=== PATIENT | female | born 1990 | race Hispanic/Latino ===

== ENCOUNTER 2020-08-07 03:43 | Inpatient (IN) | payer OTHER ==
[~2020-08-07] VITALS: Ht 167.6 cm; Wt 74.8 kg
[~2020-08-07 03:43] MED LIST: HYDROCODON-ACE1 EAC9; LORAZEPAM2 MG; Z.0.FAMOTIDINE20 MG MT; Z.0.SUCRALFATE1 GM MT
[2020-08-07] MEDS ORDERED: ACETAMINOPHEN 325 MG TAB PO ONE (04:00)
[2020-08-07] MEDS ORDERED: SODIUM CHLORIDE 0.9% 1000ML 1,000 ML IV ONE ×2 (04:00→05:15)
[2020-08-07 04:45] LABS: BASOPHILS % 0.1 % (0.0-1.0); EOSINOPHILS # (AUTO) 0.1 (0.0-0.4); EOSINOPHILS % 1.7 % (0.0-6.0); HEMATOCRIT 36.7 % (34.2-44.1); LYMPHOCYTES % 12.2 % (18.0-39.1); MEAN CORPUSCULAR HEMOGLOBIN 31.3 pg (28-32); MEAN CORPUSCULAR HGB CONC 32.7 g/dL (31-35); MEAN CORPUSCULAR VOLUME 95.8 fL (81-99); MONOCYTES # (AUTO) 0.2 (0.2-0.8); MONOCYTES % 2.7 % (4.4-11.3); NEUTROPHILS # (AUTO) 6.8 (2.1-6.9); NEUTROPHILS % 83.1 % (38.7-80.0); PLATELET COUNT 151 x10e3/uL (140-360); RED BLOOD COUNT 3.83 x10e6/uL (3.6-5.1); RED CELL DISTRIBUTION WIDTH 12.5 % (11.7-14.4)
[2020-08-07 04:49] LABS: INR 0.9; PROTHROMBIN TIME 12.6 seconds (11.9-14.5)
[2020-08-07 04:50] LABS: PARTIAL THROMBOPLASTIN TIME 24.8 seconds (23.8-35.5)
[2020-08-07 05:03] LABS: ALANINE AMINOTRANSFERASE 48 IU/L (0-55); ALBUMIN 4.2 g/dL (3.5-5.0); ALBUMIN/GLOBULIN RATIO 1.4 (0.8-2.0); ALKALINE PHOSPHATASE 74 IU/L (40-150); ANION GAP 15.5 mmol/L (8-16); BLOOD UREA NITROGEN 16 mg/dL (7-26); BUN/CREATININE RATIO 20 (6-25); CALCIUM 9.2 mg/dL (8.4-10.2); CARBON DIOXIDE 25 mmol/L (22-29); CHLORIDE 105 mmol/L (98-107); CREATINE KINASE 108 IU/L (29-168); EST GLOMERULAR FILTRATION RATE > 60 ML/MIN (60-); GLUCOSE 91 mg/dL (74-118); POTASSIUM 3.5 mmol/L (3.5-5.1); SODIUM 142 mmol/L (136-145)
--- NOTE | 2020-08-07 05:07 | Diagnostic Imaging Report ---
EXAMINATION: CHEST 2 VIEWS INDICATION: CHEST PAIN COMPARISON: None FINDINGS: TUBES and LINES: None. LUNGS: Normal lung volumes. Lungs are clear. No consolidations. PLEURA: No pleural effusion or pneumothorax. HEART AND MEDIASTINUM: The cardiomediastinal silhouette is unremarkable. BONES AND SOFT TISSUES: No acute osseous lesion. Soft tissues are unremarkable. UPPER ABDOMEN: No free air under the diaphragm. IMPRESSION: No acute thoracic radiographic abnormality. Signed by: Abdulkadir Kasper DO on 08/07/2020 5:03 AM
[2020-08-07] MEDS ORDERED: PIPER-TAZ 3.375 GM 50 ML IV ONE (05:15)
--- OUTSIDE RECORDS SUMMARY | 2020-08-07 05:22 | XMS REPORT | Clinical Summary ---
Author Author [facility] ict Organization [facility] ict Address Unknown Phone Unavailable Care Team Providers Care Social Services Name Role Phone PCP Unavailable Allergies No Known Allergies Medications End Date Status Medication Sig Dispensed Refills Start Date Active tretinoin (RETIN-A) 0.01 Apply to 45 g 5 0 % topical gelIndications: affected area 7 Acne vulgaris at bedtime nightly. Active traMADol (ULTRAM) 50 mg Take 1 tablet 30 tablet 0 tabletIndications: by mouth 7 Pulpitis every 6 hours as needed for Pain. Active ISOtretinoin (CLARAVIS) Take 1 60 capsule 0 40 mg capsuleIndications: capsule by 7 Acne vulgaris mouth 2 times daily. 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 Dental abscess 01/08/2017 Back pain 01/05/2014 Immunizations Name Administration Dates Next Due Influenza Vaccine 12/19/2016 Tdap (Tetanus Toxoid, 01/08/2017 Reduced Diphtheria Toxoid And Acellular Pertussis, Absorbed) Family History Medical History Relation Name Comments Asthma Daughter Diabetes Maternal Grandfather Cancer Maternal Grandmother Hypothyroid Mother Relation Name Status Comments Brother Alive Daughter Alive 2 Daughter Father Alive Maternal Grandfather Maternal Grandmother Mother Alive Paternal Grandfather Paternal Grandmother Son Alive Social History Date Tobacco Use Types Packs/Day Years Used Current Every Day Smoker Cigarettes Smokeless Tobacco: Current User Tobacco Cessation: Ready to Quit: No; Co unseling Given: Yes Drinks/Week oz/Week Comments Alcohol Use 0 Standard drinks or equivalent 0.0 Yes Sex Assigned at Date Recorded Not on file Industry Job Start Date Occupation Not on file Not on file Not on file Travel End Travel History Travel Start No recent travel history available. Last Filed Vital Signs Not on file Plan of Treatment Health Maintenance Due Date Last Done Comments Cervical Cancer Scrn (3 02/15/2009 Yrs) IMM Influenza Seasonal 08/04/2020 12/19/2016Aug to January (>/= 19 yrs) Results Not on fileafter 08/07/2019 Advance Directives Date Inactivated Comments Code Status Date Activated 08/06/2012 6:35 PM Full Code 08/06/2012 6:35 PM
--- OUTSIDE RECORDS SUMMARY | 2020-08-07 05:22 | XMS REPORT | Continuity of Care Document ---
Author Author [facility] t Organization [facility] Address [address] [place] [address] Phone Unavailable Care Team Providers Care Field Radio Technician Name Role Phone RACHAEL HIRSCH Unavailable Problems Condition Name Condition Details Condition Category Status Onset Date Resolution Date Last Treatment Date Treating Clinician Comments Source Ulnar neuropathy of left upper extremity Ulnar neuropa thy of left upper extremity Disease Active 2017-04-19 00:00:00 [facility] Dental abscess Dental abscess Disease Active 2017-01-08 00:00:00 [facility] Back pain Back pain Disease Active 2014-01-05 00:00:00 [facility] Allergies, Adverse Reactions, Alerts This patient has no known allergies or adverse reactions. Family History Family Member Diagnosis Comments Start Date Stop Date Source Natural daughter Asthma [facility] Maternal grandfather Diabetes [facility] Maternal grandmother Cancer [facility] Natural mother Hypothyroid [facility] alth Social History Social Habit Start Date Stop Date Quantity Comments Source History of tobacco use Cigarette Smoker [facility] Sex Assigned At [facility] Alcohol intake 2017-04-19 00:00:00 2017-04-19 00:00:00 Current drinker of alcohol (finding) [facility] Smoking Status Start Date Stop Date Source Current every day smoker 2017-04-19 00:00:00 [facility] Medications Ordered Medication Name Filled Medication Name Start Date Stop Da te Current Medication? Ordering Clinician Indication Dosage Frequency Signature (SIG) Comments Components Source ISOtretinoin (CLARAVIS) 40 mg capsule 2017-08-02 00:00:00 Yes Acne vulgaris 40mg Q.5D Take 1 capsule by [facility] 2 times daily. [facility]#[id number]*patient must apple picker by 08/31/17* [facility] traMADol (ULTRAM) 50 mg tablet 2017-02-07 00:00:00 Yes Pulpitis 50mg Take 1 tablet by mouth every 6 hours as needed for Pain. [facility] tretinoin (RETIN-A) 0.01 % topical gel 2017-01-08 00:00:00 Yes Acne vulgaris Apply to affected area at bedtime nightly. [facility] Immunizations Ordered Immunization Name Filled Immunization Name Date Status Comments Source Tdap (Tetanus Toxoid, Reduced Diphtheria Toxoid And Acellular Pertussis, Absorbed) 2017-01-08 00:00:00 Completed [facility] Influenza Vaccine 2016-12-19 00:00:[address] [facility] Procedures This patient has no known procedures. Plan of Care Planned Activity Planned Date Details Comments Source Future Scheduled Test 2020-08-04 00:00:00 IMM Influenza Seas onal Aug to January (>/= 19 yrs) [code = IMM Influenza Seasonal Aug to January (>/= [address]rs)] [facility] Future Scheduled Test 2009-02-15 00:00:00 Screening for juanpablo gnant neoplasm of cervix (procedure) [code = 618845160] [facility] Encounters Start Date/Time End Date/Time Encounter Type Admission Type [facility] Care Department Encounter ID Source 2019-03-28 15:45:00 2019-03-28 15:45:00 Inpatient [id number] [facility] 2017-09-11 00:00:00 2017-09-11 00:00:00 Outpatient [facility] [id number] [facility] 2017-08-02 13:47:33 2017-08-02 13:47:33 Outpatient [facility] [id number] [facility] 2017-06-21 12:04:31 2017-06-21 12:04:31 Outpatient [facility] [id number] [facility] 2017-06-21 00:00:00 2017-06-21 00:00:00 Outpatient [facility] [id number] [facility] 2017-05-27 00:00:00 2017-05-27 00:00:00 Outpatient [facility] [id number] [facility] 2017-05-15 11:59:11 2017-05-15 11:59:11 Outpatient [facility] [id number] [facility] 2017-05-15 11:25:51 2017-05-15 11:25:51 Outpatient [facility] [id number] [facility] 2017-04-19 15:44:06 2017-04-19 15:44:06 Outpatient [facility] [id number] [facility] 2017-04-12 12:29:17 2017-04-12 12:29:17 Outpatient [facility] [id number] [facility] 2017-04-12 11:05:44 2017-04-12 11:05:44 Outpatient [facility] [id number] [facility] 2017-04-09 00:00:00 2017-04-09 00:00:00 Outpatient [facility] [id number] [facility] Results Test Description Test Time Test Comments Results Result Comments Source CHEST 2 VIEWS 2020-08-07 05:03:00 [facility] [address] [place] [address] Patient Name: NEGAR SUN MR #: [id number] : 1990 Age/Sex: 30/F Req #: [id number] Adm Physician: Ordered by: RACHAEL HIRSCH DO Report #: [id number] Location: ER Room/Bed: Procedure: [id number] DX/CHEST 2 VIEWS Exam Date: 08/07/20 Exam Time: 0450 REPORT STATUS: Signed EXAMINATION: CHEST 2 VIEWS INDICATION: CHEST PAIN COMPARISON: None FINDINGS: TUBES and LINES: None. LUNGS: Normal lung volumes. Lungs are clear. No consolidations. PLEURA: No pleural effusion or pneumothorax. HEART AND MEDIASTINUM: The cardiomediastinal silhouette is unremarkable. BONES AND SOFT TISSUES: No acute osseous lesion. Soft tissues are unremarkable. UPPER ABDOMEN: No free air under the diaphragm. IMPRESSION: No acute thoracic radiographic abnormality. Signed by: Abdulkadir Kasper DO on 08/07/2020 5:03 AM Dictated By: ABDULKADIR KASPER DO [id number] Transcribed By: CHANTEL on 08/07/209 COPY TO: RACHAEL HIRSCH DO
[2020-08-07 05:31] LABS: CLARITY,URINE SL CLOUDY (CLEAR); COLOR,URINE YELLOW (YELLOW)
[2020-08-07 05:32] LABS: KETONES,URINE TRACE (NEGATIVE); LEUKOCYTE ESTERASE ,URINE TRACE (NEGATIVE); NITRITE,URINE NEGATIVE (NEGATIVE); PHENCYCLIDINE SCREEN,URINE NEGATIVE (NEGATIVE); PROTEIN,URINE DIPSTICK NEGATIVE (NEGATIVE)
[2020-08-07 05:33] LABS: AMPHETAMINES SCREEN,URINE NEGATIVE (NEGATIVE); BENZODIAZEPINES SCREEN,URINE NEGATIVE (NEGATIVE); BILIRUBIN,URINE SMALL (NEGATIVE); URINE UROBILINOGEN 0.2 mg/dL (0.2 - 1)
--- NOTE | 2020-08-07 05:33 | Emergency Department Note ---
History of Present Illnes History of Present Illness Chief Complaint: Chest Pain History of Present Illness This is a 30 year old female brought by EMS for CP one hour prior to arrival. Admits to smoking prior to arrival. Historian: Patient Arrival Mode: [place] Onset (how long ago): hour(s) Onset quality: sudden Duration (how long): hour(s) Timing of current episode: constant Progression: worsening Context: Denies recent illness, Denies recent surgery, Denies recent immobilization, Denies recent travel, Denies trauma/injury, Denies new medications, Denies hx of DVT/PE, Denies non-compliance w/ medications, Denies other Relieving factors: none Exacerbating factors: none Associated symptoms: Reports chest pain Treatments prior to arrival: none Past Medical/Family History Physician Review I have reviewed the patient's past medical and family history. Any updates have been documented here. Past Medical History Recent Fever: Yes Clinical Suspicion of Infectio: Yes New/Unexplained Change in Ment: No Other Medical History: ESOPHAGEAL HERNIA Past Surgical History: Hysterectomy Other Surgery: EGD 2 WEEKS AGO Social History Smoking Cessation: Current every day smoker Counseling Performed: Yes Alcohol Use: Occasional Any Illegal Drug Use: Yes (MARIJUANA PER PT) Other Any Pre-Existing Lines (PICC,: No Review of Systems Review of Systems Constitutional: Reports no symptoms EENTM: Reports no symptoms Cardiovascular: Reports chest pain Respiratory: Reports dyspnea Gastrointestinal: Reports no symptoms Genitourinary: Reports no symptoms Musculoskeletal: Reports no symptoms Integumentary: Reports no symptoms Neurological: Reports no symptoms Psychological: Reports no symptoms Endocrine: Reports no symptoms Hematological/Lymphatic: Reports no symptoms Physical Exam Related Data Allergies: Coded Allergies: No Known Allergies (Unverified , 04/13/11) Triage Vital Signs Vital Signs Date Time Temp Pulse Resp B/P (MAP) Pulse Ox O2 Delivery O2 Flow Rate FiO2 08/07/20 03:55 103.1 88 20 112/61 99 Room Air Vital signs reviewed: Yes Physical Exam CONSTITUTIONAL Constitutional: Present well-developed, Present well-nourished HENT HENT: Present normocephalic, Present atraumatic, Present oropharynx clear/moist, Present nose normal HENT L/R: Present left ext ear normal, Present right ext ear normal EYES Eyes: Reports PERRL, Reports conjunctivae normal NECK Neck: Present ROM normal PULMONARY Pulmonary: Present effort normal, Present breath sounds normal CARDIOVASCULAR Cardiovascular: Present regular rhythm, Present heart sounds normal, Present capillary refill normal, Present normal rate GASTROINTESTINAL Abdominal: Present soft, Present nontender, Present bowel sounds normal GENITOURINARY Genitourinary: Present exam deferred SKIN Skin: Present warm, Present dry MUSCULOSKELETAL Musculoskeletal: Present ROM normal NEUROLOGICAL Neurological: Present alert, Present oriented x 3, Present no gross motor or sensory deficits PSYCHOLOGICAL Psychological: Present mood/affect normal, Present judgement normal Results Laboratory Result Diagram: 08/07/20 0400 08/07/20 0400 Laboratory Laboratory Tests Test 08/07/20 04:00 08/07/20 03:45 White Blood Count 8.22 x10e3/uL (4.8-10.8) Red Blood Count 3.83 x10e6/uL (3.6-5.1) Hemoglobin 12.0 g/dL (12.0-16.0) Hematocrit 36.7 % (34.2-44.1) Mean Corpuscular Volume 95.8 fL (81-99) Mean Corpuscular Hemoglobin 31.3 pg (28-32) Mean Corpuscular Hemoglobin Concent 32.7 g/dL (31-35) Red Cell Distribution Width 12.5 % (11.7-14.4) Platelet Count 151 x10e3/uL (140-360) Neutrophils (%) (Auto) 83.1 % (38.7-80.0) Lymphocytes (%) (Auto) 12.2 % (18.0-39.1) Monocytes (%) (Auto) 2.7 % (4.4-11.3) Eosinophils (%) (Auto) 1.7 % (0.0-6.0) Basophils (%) (Auto) 0.1 % (0.0-1.0) Neutrophils # (Auto) 6.8 (2.1-6.9) Lymphocytes # (Auto) 1.0 (1.0-3.2) Monocytes # (Auto) 0.2 (0.2-0.8) Eosinophils # (Auto) 0.1 (0.0-0.4) Basophils # (Auto) 0.0 (0.0-0.1) Absolute Immature Granulocyte (auto 0.02 x10e3/uL (0-0.1) Prothrombin Time 12.6 seconds (11.9-14.5) Prothromb Time International Ratio 0.90 Activated Partial Thromboplast Time 24.8 seconds (23.8-35.5) D-Dimer Quantitative (PE/DVT) 620 ng/mL (0-400) Sodium Level 142 mmol/L (136-145) Potassium Level 3.5 mmol/L (3.5-5.1) Chloride Level 105 mmol/L (98-107) Carbon Dioxide Level 25 mmol/L (22-29) Anion Gap 15.5 mmol/L (8-16) Blood Urea Nitrogen 16 mg/dL (7-26) Creatinine 0.80 mg/dL (0.57-1.11) Estimat Glomerular Filtration Rate > 60 ML/MIN (60-) BUN/Creatinine Ratio 20 (6-25) Glucose Level 91 mg/dL (74-118) Lactic Acid Level 2.8 mmol/L (0.5-2.0) Calcium Level 9.2 mg/dL (8.4-10.2) Total Bilirubin 0.5 mg/dL (0.2-1.2) Aspartate Amino Transf (AST/SGOT) 114 IU/L (5-34) Alanine Aminotransferase (ALT/SGPT) 48 IU/L (0-55) Alkaline Phosphatase 74 IU/L (40-150) Creatine Kinase 108 IU/L (29-168) Creatine Kinase MB 0.70 ng/mL (0-5.0) Troponin I < 0.001 ng/mL (0-0.300) Total Protein 7.1 g/dL (6.5-8.1) Albumin 4.2 g/dL (3.5-5.0) Globulin 2.9 g/dL (2.3-3.5) Albumin/Globulin Ratio 1.4 (0.8-2.0) Lab results reviewed: Yes Imaging Imaging results reviewed: Yes Impressions [place] [id number] Patient Name: NEGAR NARANJO MR #: [id number] : 1990 Age/Sex: 30/F Req #: [id number] Adm Physician: Ordered by: RACHAEL HIRSCH DO Report #: [id number] Location: ER Room/Bed: Procedure: [id number] CT/CT CHEST W Exam Date: Exam Time: REPORT STATUS: Signed EXAM: CT Chest WITH contrast (PE protocol) 08/07/2020 6:00 AM INDICATION: CHEST PAIN COMPARISON: Same-day chest x-ray TECHNIQUE: Chest was scanned utilizing a multidetector helical scanner from the lung apex through the level of the diaphragm after administration of IV contrast. Thin section reconstructions were obtained with special concentration on the pulmonary arteries. Coronal and sagittal reformations were obtained. Pulmonary embolism protocol was performed. IV CONTRAST: 100 mL of Isovue 370 COMPLICATIONS: None RADIATION DOSE: Total DLP: 486 mGy*cm Estimated effective dose: (DLP x 0.014 x size factor) mSv CTDIvol has been reviewed. It is below the limits set by the Radiation Protocol Committee (RPC). Dose modulation, iterative reconstruction, and/or weight based adjustment of the mA/kV was utilized to reduce the radiation dose to as low as reasonably achievable. FINDINGS: LINES/ TUBES: None. LUNGS AND AIRWAYS: No pulmonary arterial filling defects. Minimal bibasilar atelectasis otherwise the lungs are unremarkable. Airways are normal. PLEURA: The pleural spaces are clear. HEART AND MEDIASTINUM: The thyroid gland is normal. No mediastinal, hilar or axillary lymphadenopathy. The heart is normal in size. There is no pericardial effusion. Normal main pulmonary artery diameter UPPER ABDOMEN: Unremarkable. BONES: The visualized bony thorax is within normal limits. SOFT TISSUES: Unremarkable. IMPRESSION: No acute thoracic CT abnormality. No pulmonary embolus. Signed by: Abdulkadir Kasper DO on 08/07/2020 6:27 AM Dictated By: ABDULKADIR KASPER DO 6 Transcribed By: CHANTEL on 08/07/20626 COPY TO: RACHAEL HIRSCH DO~ [facility] [address] [place] [address] Patient Name: NEGAR NARANJO MR #: [id number] : 1990 Age/Sex: 30/F Req #: [id number] Adm Physician: Ordered by: RACHAEL HIRSCH DO Report #: [id number] Location: ER Room/Bed: Procedure: [id number] DX/CHEST 2 VIEWS Exam Date: 08/07/20 Exam Time: 0450 REPORT STATUS: Signed EXAMINATION: CHEST 2 VIEWS INDICATION: CHEST PAIN COMPARISON: None FINDINGS: TUBES and LINES: None. LUNGS: Normal lung volumes. Lungs are clear. No consolidations. PLEURA: No pleural effusion or pneumothorax. HEART AND MEDIASTINUM: The cardiomediastinal silhouette is unremarkable. BONES AND SOFT TISSUES: No acute osseous lesion. Soft tissues are unremarkable. UPPER ABDOMEN: No free air under the diaphragm. IMPRESSION: No acute thoracic radiographic abnormality. 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: Interpreted by ED physician Date: Aug 07, 2020 Time: 03:50 Prior ECG tracings: reviewed Rhythm: sinus rhythm Rate: normal BPM: 99 Conduction: incomplete RBBB ST segments normal: Yes T waves flattening: all Clinical Impression: non-specific ECG Critical Care Time Total Critical Care Time (min): 31 Critcal care necessary due to: shock Critcal care time spent by me: discussion w consultants, discussion w primary provider, examination of patient, obtaining hx from patient/surrogate, order/perform tx or interventions, order/review laboratory studies, order/review radiographic studies, pulse oximetry, re-evaluation of patient condition Assessment & Plan Medical Decision Making MDM Diff Dx : ACS, PE, sepsis, myocarditis, pericarditis Assessment & Plan Final Impression: (1) Chest pain (2) Lactic acidosis (3) Sinus bradycardia Depart Disposition: ADMITTED Last Vital Signs Date Time Temp Pulse Resp B/P (MAP) Pulse Ox O2 Delivery O2 Flow Rate FiO2 08/07/20 03:55 103.1 88 20 112/61 99 Room Air Home Meds Reported Medications Ibuprofen (IBUPROFEN) 400 Mg Tablet, 400 MG PO Q48H, TAB 08/07/20 Buprenorphine Hcl/Naloxone Hcl (SUBOXONE 8 MG-2 MG SL FILM) 1 Each Film, 1 FILM SL Q48H 08/07/20 Sulfamethoxazole/Trimethoprim (BACTRIM DS TABLET) 1 Each Tablet, 1 TAB PO DAILY for 14 Days, #60 TAB 08/07/20 Discontinued Reported Medications Hydrocodone Bit/Acetaminophen (HYDROCODON-ACETAMINOPHN 10-325) 1 Each Tablet, Q4 11/18/12 Lorazepam (LORAZEPAM) 2 Mg Tablet, 2 MG TID 11/18/12 Medications in the ED Acetaminophen 975 mg ONCE ONCE PO Last administered on 08/07/20at 04:00; Admin Dose 975 MG; Start 08/07/20 at 04:00; Stop 08/07/20 at 04:16; Status DC Sodium Chloride 1,000 ml @ 0 mls/hr Q0M ONCE IV Last administered on 08/07/20at 04:00; Admin Dose 999 MLS/HR; Start 08/07/20 at 04:00; Stop 08/07/20 at 04:14; Status DC Sodium Chloride 1,000 ml @ 0 mls/hr Q0M ONCE IV Last administered on 08/07/20at 05:28; Admin Dose 999 MLS/HR; Start 08/07/20 at 05:15; Stop 08/07/20 at 05:19; Status DC Piperacillin Sod/ Tazobactam Sod 50 ml @ 50 mls/hr NOW ONCE IV Last administered on 08/07/20at 05:28; Admin Dose 50 MLS/HR; Start 08/07/20 at 05:15; Stop 08/07/20 at 06:14 RACHAEL HIRSCH 4, 2020 05:33
[2020-08-07 05:34] LABS: BACTERIA,URINE RARE /HPF; EPITHELIAL CELLS,URINE FEW /LPF; RBC,URINE 0-5 /HPF (0-5); WBC,URINE (MAN) 0-5 /HPF (0-5)
[2020-08-07] MEDS ORDERED: IOPAMIDOL 370 MG/ML 200 ML INFUS..BTL INJ ONE (05:50)
[2020-08-07] MEDS ORDERED: SODIUM CHLORIDE 0.9% 50ML 50 ML ONE (05:50)
[2020-08-07] MEDS ORDERED: MORPHINE SULFATE INJ 4 MG/ML INJ 1ML IV PRN (06:15)
[2020-08-07] MEDS ORDERED: ASPIRIN 81 MG CHEW TAB PO ONE (06:15)
[2020-08-07] MEDS ORDERED: ONDANSETRON HCL INJ 2MG/ML 2ML 2 MG/ML VIAL IV PRN (06:15)
--- NOTE | 2020-08-07 06:31 | Diagnostic Imaging Report ---
EXAM: CT Chest WITH contrast (PE protocol) 08/07/2020 6:00 AM INDICATION: CHEST PAIN COMPARISON: Same-day chest x-ray TECHNIQUE: Chest was scanned utilizing a multidetector helical scanner from the lung apex through the level of the diaphragm after administration of IV contrast. Thin section reconstructions were obtained with special concentration on the pulmonary arteries. Coronal and sagittal reformations were obtained. Pulmonary embolism protocol was performed. IV CONTRAST: 100 mL of Isovue 370 COMPLICATIONS: None RADIATION DOSE: Total DLP: 486 mGy*cm Estimated effective dose: (DLP x 0.014 x size factor) mSv CTDIvol has been reviewed. It is below the limits set by the Radiation Protocol Committee (RPC). Dose modulation, iterative reconstruction, and/or weight based adjustment of the mA/kV was utilized to reduce the radiation dose to as low as reasonably achievable. FINDINGS: LINES/ TUBES: None. LUNGS AND AIRWAYS: No pulmonary arterial filling defects. Minimal bibasilar atelectasis otherwise the lungs are unremarkable. Airways are normal. PLEURA: The pleural spaces are clear. HEART AND MEDIASTINUM: The thyroid gland is normal. No mediastinal, hilar or axillary lymphadenopathy. The heart is normal in size. There is no pericardial effusion. Normal main pulmonary artery diameter UPPER ABDOMEN: Unremarkable. BONES: The visualized bony thorax is within normal limits. SOFT TISSUES: Unremarkable. IMPRESSION: No acute thoracic CT abnormality. No pulmonary embolus. Signed by: Abdulkadir Kasper DO on 08/07/2020 6:27 AM
--- OUTSIDE RECORDS SUMMARY | 2020-08-07 06:35 | XMS REPORT | Clinical Summary ---
Author Author [facility] ict Organization [facility] ict Address Unknown Phone Unavailable Care Team Providers Care [employer] Attendant Name Role Phone PCP Unavailable Allergies No [...] 7 Acne vulgaris mouth 2 times daily. 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
--- OUTSIDE RECORDS SUMMARY | 2020-08-07 06:35 | XMS REPORT | Continuity of Care Document ---
Author Author [facility] t Organization [facility] Address [address] [place] [address] Phone Unavailable Care Team Providers Care [employer] Systems Designer Name Role Phone TORREY RACHAEL Attphyamalia Unavailable Francesco REYES Admphyamalia Unavailable Problems Condition Name Condition Details Condition Category Status Onset Date Resolution Date Last Treatment Date Treating Clinician Comments Source Ulnar neuropathy of left upper extremity Ulnar neuropa thy of left upper extremity Disease Active 2017-04-19 00:00:00 [facility] Dental abscess Dental abscess Disease Active 2017-01-08 00:00:00 [facility] Back pain Back pain Disease Active 2014-01-05 00:00:00 [facility] Allergies, Adverse Reactions, Alerts This patient has no known allergies or adverse reactions. Family History Family Member Diagnosis Comments Start Date Stop Date Source Natural daughter Asthma [facility] Maternal grandfather Diabetes [facility] Maternal grandmother Cancer [facility] Natural mother Hypothyroid [facility] alth Social History Social Habit Start Date Stop Date Quantity Comments Source History of tobacco use Cigarette Smoker [facility] Sex Assigned At [facility] Alcohol intake 2017-04-19 00:00:00 2017-04-19 00:00:00 Current drinker of alcohol (finding) [facility] Smoking Status Start Date Stop Date Source Current every day smoker 2017-04-19 00:00:00 [facility] Medications Ordered Medication Name Filled Medication Name Start Date Stop Da te Current Medication? Ordering Clinician Indication Dosage Frequency Signature (SIG) Comments Components Source ISOtretinoin (CLARAVIS) 40 mg capsule 2017-08-02 00:00:00 Yes Acne vulgaris 40mg Q.5D Take [address] [facility] 2 times daily. 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 traMADol (ULTRAM) 50 mg tablet 2017-02-07 00:00:00 Yes Pulpitis 50mg Take 1 tablet by mouth every 6 hours as needed for Pain. [facility] tretinoin (RETIN-A) 0.01 % topical gel 2017-01-08 00:00:00 Yes Acne vulgaris Apply to affected area at bedtime nightly. [facility] Immunizations Ordered Immunization Name Filled Immunization Name Date Status Comments Source Tdap (Tetanus Toxoid, Reduced Diphtheria Toxoid And Acellular Pertussis, Absorbed) 2017-01-08 00:00:00 Completed [facility]alt Influenza Vaccine 2016-12-19 00:00:[address] [facility] Procedures This patient has no known procedures. Plan of Care Planned Activity Planned Date Details Comments Source Future Scheduled Test 2020-08-04 00:00:00 IMM Influenza Seas onal Aug to January (>/= 19 yrs) [code = IMM Influenza Seasonal Aug to January (>/= [address]rs)] [facility] Future Scheduled Test 2009-02-15 00:00:00 Screening for juanpablo gnant neoplasm of cervix (procedure) [code = 404685926] [facility] Encounters Start Date/Time End Date/Time Encounter Type Admission Type [facility] Care Department Encounter ID Source 2019-03-28 15:45:00 2019-03-28 15:45:00 Inpatient E [id number] [facility] 2017-09-11 00:00:00 2017-09-11 00:00:00 Outpatient [facility] [id number] [facility] 2017-08-02 13:47:33 2017-08-02 13:47:33 Outpatient [facility] [id number] [facility] 2017-06-21 12:04:31 2017-06-21 12:04:31 Outpatient [facility] [id number] [facility] 2017-06-21 00:00:00 2017-06-21 00:00:00 Outpatient [facility] [id number] [facility] 2017-05-27 00:00:00 2017-05-27 00:00:00 Outpatient [facility] [id number] [facility] 2017-05-15 11:59:11 2017-05-15 11:59:11 Outpatient [facility] [id number] [facility] 2017-05-15 11:25:51 2017-05-15 11:25:51 Outpatient [facility] [id number] [facility] 2017-04-19 15:44:06 2017-04-19 15:44:06 Outpatient [facility] [id number] [facility] 2017-04-12 12:29:17 2017-04-12 12:29:17 Outpatient [facility] [id number] [facility] 2017-04-12 11:05:44 2017-04-12 11:05:44 Outpatient [facility] [id number] [facility] 2017-04-09 00:00:00 2017-04-09 00:00:00 Outpatient [facility] [id number] [facility] Results Test Description Test Time Test Comments Results Result Comments Source CT CHEST W 2020-08-07 06:24:00 [facility] [address] [address] Patient Name: NEGAR SUN MR #: [id number] : 1990 Age/Sex: 30/F Req #: [id number] Adm Physician: Ordered by: RACHAEL HIRSCH DO Report #: [id number] Location: ER Room/Bed: Procedure: [id number] CT/CT CHEST W Exam Date: Exam Time: REPORT STATUS: Signed EXAM: CT Chest WITH contrast (PE protocol) 08/07/2020 6:00 AM INDICATION: CHEST PAIN COMPARISON: Same-day chest x-ray TECHNIQUE: Chest was scanned utilizing a multidetector helical scanner from the lung apex through the level of the diaphragm after administration of IV contrast. Thin section reconstructions were obtained with special concentration on the pulmonary arteries. Coronal and sagittal reformations were obtained. Pulmonary embolism protocol was performed. IV CONTRAST: 100 mL of Isovue 370 COMPLICATIONS: None RADIATION DOSE: Total DLP: 486 mGy*cm Estimated effective dose: (DLP x 0.014 x size factor) mSv CTDIvol has be en reviewed. It is below the limits set by the Radiation Protocol Committee (RPC). Dose modulation, iterative reconstruction, and/or weight based adjustment of the mA/kV was utilized to reduce the radiation dose to as low as reasonably achievable. FINDINGS: LINES/ TUBES: None. LUNGS AND AIRWAYS: No pulmonary arterial filling defects. Minimal bibasilar atelectasis otherwise the lungs are unremarkable. Airways are normal. PLEURA: The pleural spaces are clear. HEART AND MEDIASTINUM: The thyroid gland is normal. No mediastinal, hilar or axillary lymphadenopathy. The heart is normal in size. There is no pericardial effusion. Normal main pulmonary artery diameter UPPER ABDOMEN: Unremarkable. BONES: The visualized bony thorax is within normal limits. SOFT TISSUES: Unremarkable. IMPRESSION: No acute thoracic CT abnormality. No pulmonary embolus. Signed by: Abdulkadir Kasper DO on 08/07/2020 6:27 AM Dictated By: MARVIN KASPER DO 6 Transcribed By: CHANTEL on 08/07/20626 COPY TO: RACHAEL HIRSCH DO CHEST 2 VIEWS 2020-08-07 05:03:00 [address] [address] Patient Name: NEGAR SUN MR #: [id number] : 1990 Age/Sex: 30/F Req #: [id number] Adm Physician: Ordered by: RACHAEL HIRSCH DO Report #: [id number] Location: ER Room/Bed: Procedure: [id number] DX/CHEST 2 VIEWS Exam Date: 08/07/20 Exam [...] 5:03 AM Dictated By: ABDULKADIR KASPER DO 2 Transcribed By: CHANTEL on 08/07/20502 COPY TO: RACHAEL HIRSCH DO
--- NOTE | 2020-08-07 06:52 | NUR ---
walking rounds with guillaume francis
--- NOTE | 2020-08-07 07:05 | NUR ---
H&P cc: chest pain HPI: 30yoF, PCP Dr.Ritu Overton, developed chest discomfort in substernal region. Some SOB. no dizziness. PMH: hematemesis, current smoker, anxiety d/o, constipation PSx: hysterectomy due to complication in 2011 Allergies; see emr Fh/SH; current smoker Med;s see MAR ROS; non f/c/s/N/V/D/CANO/skin rash/confusion/dizziness/leg pain/focal limb weakness/vision changes v/s; revd PE tired appearing anicteric ns1s2; slow HR; TENDER EPIGASTRIUM AND TENDER LOWER MID CHEST WALL mod bs soft nt nd no e/t skin dry n. affect a&ox3; jorge labs/meds revd A/P: 30yoF Musculoskeletal chest pain- check CE; ASA; check lipids Bradyarrhythmia- check echo; avoid AV blocking agents; tele Fever- IV zosyn empirically Possible GERD- ppi Lactic acidosis- rehydrate WALESKA- BZD prn Constipation- bowel reg Prop: lovenox; pepcid dipso: f/u labs and echo DIAN QURESHI MD, PHD.
[2020-08-07] MEDS ORDERED: ZOLPIDEM TARTRATE 5 MG TAB PO PRN (07:15)
[2020-08-07] MEDS ORDERED: LORAZEPAM 1 MG TAB PO PRN (07:15)
[2020-08-07] MEDS ORDERED: ACETAMINOPHEN 325 MG TAB PO PRN (07:15)
[2020-08-07] MEDS: FAMOTIDINE 20 MG TAB PO SCH ×2 (07:40→16:41)
[2020-08-07 09:35] VITALS: BP 102/53
--- NOTE | 2020-08-07 09:35 | NUR ---
RECEIVED PATIENT FROM ER TO ROOM 296. SHE IS IN STABLE CONDITION. IV LINES TO BILATERAL FOREARMS PATENT. ORIENTED TO ROOM AND POLICIES. CALL LIGHT WITHIN REACH. BED IN THE LOWEST POSITION.
[2020-08-07] MEDS: ASPIRIN 325 MG TAB PO SCH (09:49)
[2020-08-07] MEDS: DOCUSATE SODIUM 100 MG CAP PO PRN ×2 (09:49→17:20)
[2020-08-07 11:27] LABS: CHOL/HDL RATIO 2.2 (3.0-3.6)
[2020-08-07 12:07] LABS: CREATINE KINASE MB 0.9 ng/mL (0-5.0)
[2020-08-07 13:00] VITALS: BP 92/47
--- NOTE | 2020-08-07 13:26 | Consultation ---
DATE OF CONSULTATION: 08/07/2020 Cardiology Consultation REASON FOR CONSULTATION: Chest pain. HISTORY OF PRESENT ILLNESS: A 30-year-old pleasant woman with history of diaphragmatic hernia, tobacco/marijuana use, presents with complaints of fast palpitations and chest pressure, which woke her up from sleep at 3 o'clock in the morning. Symptoms improved after administration of aspirin. She continues to complain of mild chest discomfort and epigastric discomfort, which is reproducible to her palpation to the area affected. She denies any exertional complaints including absence of chest discomfort or dyspnea with exertion. She currently reports no recurrent palpitations. While sleeping on telemetry, she has had episodes of asymptomatic sinus bradycardia into the high 30s, mostly remaining within normal heart rhythm without any arrhythmias documented so far. Her D-dimer was elevated at 620. CT chest PE protocol was negative for pulmonary embolism or other acute abnormalities. Her troponin I was negative at 0.001. EKG shows sinus rhythm with incomplete right bundle branch block. Her initial lactic acid was elevated at 2.8. Repeat was found to be within normal range and blood cultures are drawn and pending. REVIEW OF SYSTEMS: A 12-system review is negative except for as noted above. PAST MEDICAL HISTORY: Remarkable for diaphragmatic hernia. SOCIAL HISTORY: Reports tobacco and marijuana use. No other illicit drugs or alcohol use. FAMILY HISTORY: Noncontributory. PHYSICAL EXAMINATION: VITAL SIGNS: Temperature 98.1, heart rate 48 to 68, blood pressure 102/53, and O2 saturation 99%. BMI 26.6. GENERAL: In no acute distress. Alert. NECK: No JVD. No carotid bruits. CHEST: Clear to auscultation bilaterally. CARDIOVASCULAR: Regular rate and rhythm. Normal S1 and S2. No S3. No S4. No murmurs. No rubs. ABDOMEN: Soft. Bowel sounds positive. EXTREMITIES: No edema. Warm extremities. CARDIOVASCULAR MEDICATIONS: Reviewed. Aspirin 325 mg daily. STUDIES: Reviewed. Sodium 142, potassium 3.5, chloride 105, bicarbonate 25, BUN 16, creatinine 0.8, and glucose 91. White blood cells 8.2, hemoglobin 12, and platelets 151. INR 0.9, PT 12.6, and PTT 24.8. AST 114, ALT 48, alkaline phosphatase 74, and total bilirubin 0.5. Troponin I less than 0.001. Blood cultures pending. Initial lactic acid 2.8, slightly elevated. D-dimer elevated at 620. CT negative for PE. Chest x-ray without acute abnormalities. EKG, sinus rhythm with incomplete right bundle branch block. Echocardiogram reviewed, preserved left ventricular systolic function, LVEF 60% to 65%. Normal diastolic parameters. Trace mitral and tricuspid regurgitation. ASSESSMENT AND PLAN: A 30-year-old woman presents with atypical chest pain and palpitations. Found to have elevated D-dimer and lactic acid as well as elevated AST. RECOMMEND: Await blood cultures. Consider evaluation for hepatobiliary disease. Differential diagnosis from a cardiac standpoint includes arrhythmogenic event, so far asymptomatic, sinus bradycardia and sinus rhythm without any documented arrhythmias. Continue monitoring while in-house on telemetry. If discharged, advised on outpatient followup or telemetry monitoring and consider stress test. Chest pain pattern, atypical for coronary artery disease etiology. Ronan Mccabe MD [facility]/MOD[facility] /[id number]
[2020-08-07] MEDS ORDERED: SODIUM CHLORIDE 0.9% 250ML 250 ML ONE (13:47)
[2020-08-07] MEDS: PIPER-TAZ 3.375 GM 50 ML IV SCH ×2 (13:51→21:52)
[2020-08-07] MEDS ORDERED: SUBOXONE 8 MG-1 EAC2 SL (14:09)
[2020-08-07] MEDS ORDERED: BACTRIM DS TAB1 EACH PO (14:09)
[2020-08-07] MEDS ORDERED: IBUPROFEN400 MG PO (14:09)
[2020-08-07] MEDS: ENOXAPARIN SOD INJ 40 MG/0.4 ML SYR SC SCH (16:41)
[2020-08-07 16:47] VITALS: BP 104/76
--- NOTE | 2020-08-07 18:08 | NUR ---
SOAP SUDS ENEMA AFTER KUB IS DONE.
--- NOTE | 2020-08-07 18:23 | Diagnostic Imaging Report ---
Exam: KUB - 2 views Clinical History: Constipation. Comparison: CT abdomen/pelvis 05/02/2011. Findings: Nonobstructive bowel gas pattern. Abundant stool throughout the colon. No evidence of free intraperitoneal air. No evidence of abnormal calcification. No acute bony abnormality. Impression: Abundant stool throughout the colon, compatible with constipation. Signed by: Dr. Napoleon Benavides MD on 08/07/2020 6:20 PM
--- NOTE | 2020-08-07 18:57 | NUR ---
SOAP RAMON ENEMA ADMINISTERED AT THIS TIME. PATIENT TOLERATED IT WELL.
--- NOTE | 2020-08-07 18:59 | NUR ---
CALLED DR. QURESHI TO NOTIFY OF KUB RESULTS, NO ANSWER, LVM.
--- NOTE | 2020-08-07 19:08 | NUR ---
BEDSIDE SHIFT REPORT GIVEN TO ONCOMING NURSE. PATIENT IS RESTING IN BED, NO ACUTE DISTRESS NOTED AT THIS TIME. CALL LIGHT WITHIN REACH. BED IN THE LOWEST POSITION.
[2020-08-07 19:35] VITALS: BP 92/74
[2020-08-07 21:07] VITALS: BP 92/74
[2020-08-07 22:38] LABS: CREATINE KINASE MB 0.8 ng/mL (0-5.0)
[2020-08-08] VITALS (7 sets, daily range): BP systolic 92–106; BP diastolic 46–71
[2020-08-08] MEDS: PIPER-TAZ 3.375 GM 50 ML IV SCH ×3 (05:58→22:13)
--- NOTE | 2020-08-08 06:13 | NUR ---
IM- progress note O/N see below ROS; non f/c/s/N/V/D/CANO/skin rash/confusion/dizziness/leg pain/focal limb weakness/vision changes v/s; revd PE tired appearing anicteric ns1s2; slow HR; TENDER EPIGASTRIUM AND TENDER LOWER MID CHEST WALL mod bs soft nt nd no e/t skin dry n. affect a&ox3; jorge labs/meds revd A/P: 30yoF Musculoskeletal chest pain- check CE; ASA; check lipids Bradyarrhythmia- check echo; avoid AV blocking agents; tele Fever- IV zosyn empirically Possible GERD- ppi Lactic acidosis- rehydrate WALESKA- BZD prn Constipation- bowel reg Prop: lovenox; pepcid dipso: f/u labs and echo 10-5 Constipation- bowel reg; Bradycardia and Hypotension- baseline? monitor; continue IV abx; f/u labs; DIAN QURESHI MD, PHD.
[2020-08-08 06:23] LABS: BASOPHILS % 0.5 % (0.0-1.0); EOSINOPHILS # (AUTO) 0.3 (0.0-0.4); EOSINOPHILS % 8.1 % (0.0-6.0); HEMATOCRIT 32.9 % (34.2-44.1); HEMOGLOBIN 10.8 g/dL (12.0-16.0); LYMPHOCYTES # (AUTO) 2.2 (1.0-3.2); MEAN CORPUSCULAR HEMOGLOBIN 31.6 pg (28-32); MEAN CORPUSCULAR HGB CONC 32.8 g/dL (31-35); MEAN CORPUSCULAR VOLUME 96.2 fL (81-99); MONOCYTES # (AUTO) 0.4 (0.2-0.8); MONOCYTES % 8.3 % (4.4-11.3); NEUTROPHILS # (AUTO) 1.3 (2.1-6.9); NEUTROPHILS % 29.9 % (38.7-80.0); PLATELET COUNT 140 x10e3/uL (140-360); RED BLOOD COUNT 3.42 x10e6/uL (3.6-5.1); RED CELL DISTRIBUTION WIDTH 12.5 % (11.7-14.4)
[2020-08-08] MEDS ORDERED: SODIUM CHLORIDE 0.9% 500ML 500 ML IV ONE (06:30)
[2020-08-08 06:55] LABS: ALANINE AMINOTRANSFERASE 458 IU/L (0-55); ALBUMIN 3.4 g/dL (3.5-5.0); ALBUMIN/GLOBULIN RATIO 1.3 (0.8-2.0); ALKALINE PHOSPHATASE 73 IU/L (40-150); ANION GAP 8.9 mmol/L (8-16); BLOOD UREA NITROGEN 9 mg/dL (7-26); BUN/CREATININE RATIO 11 (6-25); CALCIUM 8.3 mg/dL (8.4-10.2); CARBON DIOXIDE 27 mmol/L (22-29); CHLORIDE 108 mmol/L (98-107); EST GLOMERULAR FILTRATION RATE > 60 ML/MIN (60-); GLUCOSE 91 mg/dL (74-118); POTASSIUM 3.9 mmol/L (3.5-5.1); SODIUM 140 mmol/L (136-145)
[2020-08-08] MEDS: ASPIRIN 325 MG TAB PO SCH (08:57)
[2020-08-08] MEDS: FAMOTIDINE 20 MG TAB PO SCH ×2 (08:57→16:04)
[2020-08-08] MEDS: DOCUSATE SODIUM 100 MG CAP PO PRN (09:02)
--- NOTE | 2020-08-08 11:41 | Progress Note ---
DATE: 08/08/2020 Cardiology Progress Note SUBJECTIVE: Denies any chest pain or shortness of breath. Has no other complaints today. OBJECTIVE: VITAL SIGNS: Temperature 98.6, heart rate 48, respiratory rate 20, blood pressure 104/59, and O2 saturation 100% on room air. GENERAL: In no acute distress. Alert. NECK: No JVD. CHEST: Clear to auscultation. CARDIOVASCULAR: Regular rate and rhythm. Normal S1 and S2. No S3. No S4. No murmurs or rubs. ABDOMEN: Soft. Bowel sounds positive. EXTREMITIES: No edema. CARDIOVASCULAR MEDICATIONS: Reviewed. Aspirin 325 mg daily and Lovenox 40 mg subcutaneous daily. LABORATORY DATA: White blood cells 4, hemoglobin 10.8, and platelets 142. Sodium 140, potassium 3.9, chloride 108, bicarbonate 27, BUN 9, creatinine 0.8, and glucose 107. Total bilirubin 0.6, AST 269, and ALT 458. Coronavirus PCR negative. ASSESSMENT AND PLAN: A 30-year-old woman presents with epigastric discomfort, atypical chest pain, now found to have abnormal LFTs, symptoms have improved. Incidental finding of asymptomatic sinus bradycardia. The patient has a prior history of Suboxone chronic use, which she has been taking for the last year for prior history of drug addiction. Suggest monitoring telemetry on this medication. From a cardiovascular standpoint, the patient is discharged and advised on outpatient followup with manager monitoring as outpatient. MD THEA Dickinson/KECIA /[id number]
[2020-08-08] MEDS ORDERED: ACETAMIN/BUTALBITAL/CAFFEINE TAB PO PRN (13:30)
--- NOTE | 2020-08-08 14:00 | Diagnostic Imaging Report ---
EXAM: US ABDOMEN COMPLETE DATE: 08/08/2020 12:19 PM INDICATION: Elevated liver enzymes COMPARISON: None TECHNIQUE: Transverse and longitudinal willis scale and color doppler sonographic images of the upper abdomen were obtained. FINDINGS: LIVER 14.3 cm in the right midclavicular line. Mildly increased echogenicity of the liver with normal contour, no masses. SPLEEN 10.9 cm in maximum diameter. Normal echogenicity, no masses. GALLBLADDER No gallbladder wall thickening, distension, stone, or pericholecystic fluid. Negative reported sonographic Simpson's sign. The gallbladder wall measures 2mm BILE DUCTS No intra nor extra-hepatic biliary dilation. Common bile duct measures 4mm PANCREAS: Visualized portions are normal. RIGHT KIDNEY: 10.8 cm Echogenicity: Normal Collecting System: No hydronephrosis Stones: None Cyst/Mass: None LEFT KIDNEY: 10.7 cm Echogenicity: Normal Collecting System: No hydronephrosis Stones: None Cyst/Mass: None VESSELS: Aorta: Visualized portions are within normal size limits Inferior Vena Cava: Visualized portions are normal Main Portal Vein: 0.8 cm, normal size with hepatopetal flow. FREE FLUID: None IMPRESSION: Mild diffuse hepatic steatosis. Otherwise, unremarkable abdominal ultrasound. Signed by: Dona Roach MD on 08/08/2020 1:56 PM
[2020-08-08] MEDS: ENOXAPARIN SOD INJ 40 MG/0.4 ML SYR SC SCH (16:04)
--- NOTE | 2020-08-08 18:30 | NUR ---
Pt complaining of chest pain to left upper chest. Pt received pain medication, EKG was done and results called into Dr. Pandey. No further orders received at this time.
[2020-08-09] VITALS (7 sets, daily range): BP systolic 89–99; BP diastolic 37–55
[2020-08-09] MEDS: PIPER-TAZ 3.375 GM 50 ML IV SCH (05:31)
--- NOTE | 2020-08-09 06:46 | NUR ---
D/C summary Principal Dx: Musculoskeletal chest pain- check CE; ASA; check lipids Bradyarrhythmia- check echo; avoid AV blocking agents; tele Fever- IV zosyn empirically Constipation- bowel lreg Secondayr Dx Possible GERD- ppi Lactic acidosis- rehydrate WALESKA- BZD prn Constipation- bowel reg Prop: lovenox; pepcid dipso: f/u labs and echo 10-5 Constipation- bowel reg; Bradycardia and Hypotension- baseline? monitor; continue IV abx; f/u labs; 10-6 cont care; d/c planning; d.c home stable d/c>35mins f/u pcp 2 days and 2 days DIAN QURESHI MD, PHD.
[2020-08-09] MEDS ORDERED: KEFLEX500 MG PO (07:04)
[2020-08-09] MEDS ORDERED: ASPIRIN81 MG PO (07:04)
[2020-08-09] MEDS: ASPIRIN 325 MG TAB PO SCH (09:56)
[2020-08-09] MEDS: FAMOTIDINE 20 MG TAB PO SCH (09:56)
[2020-08-09] MEDS ORDERED: ONDANSETRON HCL 4 MG ORAL DISINTEGRATING TAB PO PRN (12:30)
--- NOTE | 2020-08-09 13:07 | Progress Note ---
DATE: Cardiology Progress Note SUBJECTIVE: No new complaints today. OBJECTIVE: VITAL SIGNS: Temperature 98.2, heart rate 39 to 70, increases with movement and sitting upright in bed, blood pressure 92/54, respiratory rate 16, and O2 saturation 100%. GENERAL: In no acute distress. Alert. NECK: No JVD. CHEST: Clear to auscultation. CARDIOVASCULAR: Regular rate and rhythm. Normal S1 and S2. No S3. No S4. No murmurs or rubs. ABDOMEN: Soft. Bowel sounds positive. EXTREMITIES: No edema. CARDIOVASCULAR MEDICATIONS: Reviewed. Aspirin 325 mg daily, Pepcid 20 mg b.i.d., and Lovenox 40 mg subcutaneous daily. STUDIES: Reviewed. Sodium 140, potassium 3.9, creatinine 0.8, and glucose 91. White blood cells 4.2, hemoglobin 10.8, and platelets 140. INR 0.9. AST 269, ALT 458, alkaline phosphatase 73, and total bilirubin 0.6. ASSESSMENT AND PLAN: A 30-year-old woman presents with atypical chest pain, asymptomatic sinus bradycardia, abnormal LFTs, history of drug use on Suboxone therapy. RECOMMEND: Outpatient telemetry monitoring. Consider further workup of LFTs deferred to primary service. MD THEA Dickinson/KECIA /[id number]
[2020-08-09] MEDS ORDERED: INFLUENZA VIRUS VAC SPLIT INJ 0.5 ML SYR IM ONE (15:00)
--- NOTE | 2020-08-09 16:20 | NUR ---
Pt discharged home at this time. Pt is aox4 and able to verbalize needs at time of discharge. 0 s/s of acute distress noted at time of discharge. Pt verbalized understanding of all discharge and follow up appointment. IV to left hand discontinued and dressing placed to insertion area.
[2020-08-10] MEDS ORDERED: NALOXONE HCL SL SCH (09:00)
[2020-08-10] MEDS ORDERED: BUPRENORPHINE HCL SL SCH (09:00)
== END 2020-08-09 16:20 | disposition home or self-care (01) | DRG 309 ==
LOC: ER 04:11 → ERHOLD 06:32 → MED/SURG3 08:44
PROVIDERS: ADMIT Internal Medicine; ATTEND Internal Medicine
DX: R00.1 Bradycardia, unspecified (principal); E87.2 Acidosis; K21.9 Gastro-esophageal reflux disease without esophagitis; R07.9 Chest pain, unspecified; R07.89 Other chest pain; Z11.59 Encounter for screening for other viral diseases
CPT/HCPCS: 36415; 71046; 71260; 74018; 76700; 80053; 80061; 80307; 81001; 82550; 82553; 82948; 83605; 84484; 85025; 85379; 85610; 85730; 87040; 87086; 93005; 93306; 99284; J1650; J2270; J2405; J2543; J7030; J7040; J7050; Q9967

== ENCOUNTER 2021-11-16 18:43 | Emergency (ER) | payer OTHER ==
[~2021-11-16] VITALS: Ht 167.6 cm; Wt 74.8 kg
[~2021-11-16 18:43] MED LIST changes: +ASPIRIN81 MG PO; +BACTRIM DS TAB1 EACH PO; +IBUPROFEN400 MG PO; +KEFLEX500 MG PO; +SUBOXONE 8 MG-1 EAC2 SL
[2021-11-16 19:37] LABS: CLARITY,URINE CLEAR (CLEAR); COLOR,URINE YELLOW (YELLOW); KETONES,URINE NEGATIVE (NEGATIVE); LEUKOCYTE ESTERASE ,URINE NEGATIVE (NEGATIVE); NITRITE,URINE NEGATIVE (NEGATIVE); PROTEIN,URINE DIPSTICK NEGATIVE (NEGATIVE); URINE UROBILINOGEN 0.2 mg/dL (0.2 - 1)
[2021-11-16 19:49] LABS: BACTERIA,URINE RARE /HPF; EPITHELIAL CELLS,URINE MODERATE /LPF; RBC,URINE 0-5 /HPF (0-5); WBC,URINE (MAN) 0-5 /HPF (0-5)
== END 2021-11-16 20:45 | disposition home or self-care (01) ==
LOC: ER 19:06
DX: R30.0 Dysuria (principal); R53.81 Other malaise; R50.9 Fever, unspecified
CPT/HCPCS: 81001; 99282; U0002